=== PATIENT | female | born 1965 | race Caucasian/White ===

== ENCOUNTER 2020-07-01 16:03 | Inpatient (IN) | payer BC ==
--- NOTE | 2020-07-01 17:49 | PDOC.FPRHP ---
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 Her symptoms started on 06/21/20 with malaise and progressed to sore throat on 06/22/20. She was seen by PCP who prescribed cough medicine for sore throat on 06/26/20. Her symptoms improved the next day but ultimately on 06/29/20 she felt fatigued, short of breath with exertion. Endorsed decreased PO intake. She was administered azithromycin, rocephin at the outside facility. She was not administered dexamethasone. She was transferred requiring 1 L NC oxygen. She took ibuprofen at home for fever. ED Course: Pt was transferred from [facility]. Administered rocephin, azithyromycin. - Allergies/Adverse Reactions Allergies Allergy/AdvReac Type Severity Reaction Status Date / Time No Known Drug Allergies Allergy Verified 06/30/20 23:11 - Home Medications Medication Instructions Recorded Confirmed Type No Known 07/01/20 07/01/20 History - History PMHx: hx of pituitary tumor s/p partial resection, hx of [place] disease, hx of DI, hx of osteomyelitis s/p surgical debridement PSHx: facial osteomyelitis debridement FHx: Mother - diabetes; Father Alzheimer's, from COVID 04/29/20 Social: endorsed 1-2 drinks per day w/ last drink 1.5 weeks ago, denies tobacco use, denies drug use; cares for mother - hospice - Review of Systems General: reports: fever/chills, weight/appetite/sleep changes, fatigue Eyes: denies: eye pain, vision changes ENT: denies: nasal congestion, rhinorrhea Respiratory: reports: cough, congestion, shortness of breath Cardiovascular: denies: chest pain, palpitation, edema Gastrointestinal: reports: diarrhea, abdominal pain. denies: nausea, vomiting, constipation Genitourinary: denies: dysuria, polyuria Skin: denies: rashes, lesions Musculoskeletal: denies: pain, tenderness, stiffness, swelling, arthritis/arthralgias Neurological: reports: weakness. denies: numbness Psychological: denies: anxiety, depression - Vital signs BP: 125/67 HR: 90 RR: 22 Tmax: 99 Pox: 100% on 1L Wt: 74 kg - Physical Exam Constitutional: NAD, awake, alert and oriented HEENT: PERRLA, EOMI Neck: FROM, trachea midline, no JVD Heart: RRR, normal S1/S2, no murmurs/rubs/gallops, pulses present, no edema Lungs: CTAB, no respiratory distress, good air movement, no rales/rhonchi, no wheezing Abdomen: soft, non-tender, bowel sounds present Musculoskeletal: normal tone, ROM grossly normal Neurological: no focal deficit, normal sensation Skin: no rash/lesions, good turgor Heme/Lymphatic: no purpura, no petechia Psychiatric: normal mood and affect, good judgment and insight FMR H&P: Results - Radiology Interpretation Chest x-ray Status: image reviewed by me, report reviewed by me Additional comment: An AP portable film at 1530 is compared with a 02/08/07 study. There is a definite patchy infiltrate in the left lower lobe. In addition, there is probably a patchy infiltrate beginning in the right mid lung zone and possibly a small one in the left upper lobe. An infectious etiology seems probable. COVID should be included in the differential diagnosis. There are no effusions. The heart size is normal and there is no congestive change. FMR H&P: A/P - Plan 54 yo female admitted for acute hypoxic respiratory failure 2/2 COVID pneumonia: # AHRF 2/2 Pneumonia, symptom - start dexamethasone - hold abx until procalcitonin results - Pending COVID labs - continue NC oxygen as needed to maintain > 92%, appears pt previously desat'ed with ambulation to mid 80's - will not initiate remdesivir, conv plasma at this time - prophylactic lovenox # Hypokalemia - monitor with am labs # Hx of Pituitary Tumor s/p partial resection Has not followed with endocrinology in 2 years. Receives yearly MRI's with neurosurgery. Not currently on medications. - pending TSH # Hx of Diabetes Insipidus # Hx of Zbigniew's Disease Fluids: LR 100 mls/hr Diet: Regular VTE: Lovenox Code: Full Dispo: Admit to medical inpatient FMR H&P: Upper Level - Plan Date/Time: 07/01/20 078 I, [], have evaluated this patient and agree with findings/plan as outlined by wildlife biology internship resident. Pertinent changes/additions are listed here. Addendum - Attending - Attending Attestation Date/Time: 07/01/202032 I personally evaluated the patient and discussed the management with Dr. Marie I agree with the History, Examination, Assessment and Plan documented above with any addition or exceptions noted below. 54 yo female transferred from outside facility due to AHRF 2/2 COVID. Still requiring supplemental O2. Symptoms present for over 10 days. Will repeat labs. Start anticoag. Procal negative. Hold antibx. Add steroids, antitussive, and breathing treatments prn. Will give IVFs overnight due to poor PO intake. Monitor. Home when able. Otherwise treat symptoms. Migue
[2020-07-01] MEDS: Dexamethasone 4 MG TAB PO SCH (20:21)
[2020-07-01] MEDS: Lactated Ringer's 1,000 ML IV SCH (20:22)
[2020-07-01] MEDS: Acetaminophen 325 MG TAB PO PRN (20:22)
[2020-07-01 20:24] LABS: PTT 37.4 sec (22.9-36.1); Prothrombin Time 12.9 sec (12.0-14.7)
[2020-07-01 20:25] LABS: D-Dimer Test 1.33 *mcg/mL (0.27-0.43)
[2020-07-01 20:50] LABS: Ferritin 91.89 ng/mL (10-291)
[2020-07-01 21:20] LABS: Thyroid Stimulating Hormone 0.842 uIU/mL (0.35-4.94)
[2020-07-02] MEDS: Lactated Ringer's 1,000 ML IV SCH ×3 (05:53→17:30)
--- NOTE | 2020-07-02 06:15 | PDOC.FM ---
- Subjective Subjective: Febrile overnight, now improved. Frequent coughing. Pleuritic pain. Denies palpitations, pressure-like chest pain, chest wall pain. - Objective Vital Signs & Weight: Vital Signs (12 hours) Temp Pulse Resp BP Pulse Ox 07/02/20 04:00 97.9 F 79 20 111/69 95 07/02/20 00:00 98.5 F 77 20 107/74 97 07/01/20 22:22 99.4 F 07/01/20 20:22 102.7 F H 07/01/20 20:00 100.0 F H 98 20 118/76 98 Weight Weight 74.4 kg Result Diagrams: 07/02/20 06:39 07/02/20 06:39 Phys Exam - Physical Examination Constitutional: NAD (appears uncomfortable with coughing, generally fatigued) HEENT: sclera anicteric Neck: supple decreased breath sounds bilaterally, frequent coughing Cardiovascular: RRR, no significant murmur Gastrointestinal: soft, non-tender Musculoskeletal: no edema, pulses present Neurological: non-focal, moves all 4 limbs Psychiatric: normal affect, A&O x 3 Skin: normal turgor, cap refill <2 seconds Dx/Plan - Plan Plan: 54 yo female admitted for acute hypoxic respiratory failure 2/2 COVID pneumonia: # AHRF 2/2 Pneumonia, symptom - start dexamethasone - procal neg, DC abs - continue NC oxygen as needed to maintain > 92%, appears pt previously desat'ed with ambulation to mid 80's - will not initiate remdesivir, conv plasma at this time - prophylactic lovenox # Elevated D-dimer Pleuritic pain. Saturating well on 1L NC and no tachycardia. Likely 2/2 COVID, lower suspicion for PE. - continue ppx lovenox - consider CTA if worsening pain, respiratory status, or develops tachycardia # Hypokalemia, mild, resolved - monitor electrolytes # Hx of Pituitary Tumor s/p partial resection Has not followed with endocrinology in 2 years. Receives yearly MRI's with neurosurgery. Not currently on medications. - TSH wnl # Hx of Diabetes Insipidus # Hx of [place]'s Disease Fluids: LR 100 mls/hr Diet: Regular VTE: Lovenox Code: Full Dispo: Admit to medical inpatient Addendum - Attending - Attending Attestation Date/Time: 07/02/20 6008 I personally evaluated the patient and discussed the management with Dr. Bean. I agree with the History, Examination, Assessment and Plan documented above with any addition or exceptions noted below. Pulm consulted per patient's daughter request. She becomes tachypnic with minimal exertion but otherwise looks well. awaiting recommendations from pulm.
[2020-07-02] MEDS: guaiFENesin ER 600 MG TAB PO PRN ×2 (06:29→18:31)
[2020-07-02 06:48] LABS: #Lymphocytes 0.5 thou/uL (1.20-3.40); #Monocytes 0.1 thou/uL (0.11-0.59); #Neutrophils 1.6 thou/uL (1.40-6.50); %Basophils 0.6 % (0.0-1.0); %Eosinophils 0.4 % (0.0-10.0); %Monocytes 3.9 % (0.0-10.0); %Neutrophils 73.1 % (42.0-75.0); Hemoglobin 12.9 g/dL (12.0-16.0); Mean Corpuscular HGB CONC 34.5 g/dL (32.0-36.0); Mean Corpuscular Hemoglobin 32.3 pg (27.0-31.0); Mean Corpuscular Volume 93.8 fL (78.0-98.0); Mean Platelet Volume 7.8 fL (7.4-10.4); Platelet Count 186 thou/uL (130-400); RBC Distribution Width 11.5 % (11.5-14.5); Red Blood Cell (RBC) Count 3.99 mill/uL (4.20-5.40); White Blood Cell (WBC) Count 2.2 thou/uL (4.8-10.8)
[2020-07-02 07:00] LABS: Anion Gap 14 mmol/L (10-20); BUN (Urea Nitrogen) 8 mg/dL (9.8-20.1); Calc. Creatinine Clearance 131 mL/min (70-130); Calcium 8.7 mg/dL (7.8-10.44); Carbon Dioxide 24 mmol/L (22-29); Chloride 106 mmol/L (98-107); Glucose 123 mg/dL (70-105); Potassium 3.9 mmol/L (3.5-5.1); Sodium 140 mmol/L (136-145)
[2020-07-02] MEDS ORDERED: Enoxaparin Sodium 40 MG/0.4 ML SYRINGE SC SCH (09:00)
[2020-07-02] MEDS ORDERED: Colchicine 0.6 MG TAB PO SCH (11:00)
--- NOTE | 2020-07-02 15:36 | CON ---
DATE OF CONSULTATION: 07/02/2020 HISTORY OF PRESENT ILLNESS: Ms. 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 She presented with COVID pneumonia. I was asked to see her by staff and the daughter. Her main complaint is a dry cough and shortness of breath if she talks a lot. PAST MEDICAL HISTORY: Remarkable for: 1. Pituitary tumor that was resected by Dr. Ceballos, apparently only in the past. 2. History of diabetes insipidus reportedly. 3. History of [place] disease reportedly. 4. History of osteomyelitis. 5. History of cholecystectomy. SOCIAL HISTORY: She is a nonsmoker. Drinks occasionally. REVIEW OF SYSTEMS: Otherwise, negative. PHYSICAL EXAMINATION: GENERAL: She is in no distress when I evaluated her. She is on 1 L of oxygen. Oximetry is in the high 90s. She is afebrile. Heart rate is in the 70s, respiratory rate is 20. HEAD AND NECK: Unremarkable. LUNGS: Distant, clear. HEART: Regular rhythm. ABDOMEN: Soft. EXTREMITIES: Without clubbing, cyanosis, or edema. DIAGNOSTIC STUDIES: Chest radiograph, she has very mild patchy infiltrates. IMPRESSION: COVID pneumonia, at least at this time is mild. PLAN: Continue supportive care. We will follow along with the other physicians caring for her. TIME SPENT: 70-minute consult,greater than 50% of the time was spent on the unit coordinating care. Job ID: [id number] MTDD
[2020-07-02] MEDS: Acetaminophen 325 MG TAB PO PRN (16:18)
--- NOTE | 2020-07-02 17:09 | PQF ---
Q56 2019 [facility] Updated: CLINICAL DOCUMENTATION CLARIFICATION FORM: Please check appropriate box(es): [ ] Sepsis due to: [ x ] Viral Sepsis [ ] Severe sepsis with associated acute organ dysfunction: [ ] Acute Respiratory Failure [ ] Additional/Other: please specify: [ ] Localized infection without sepsis [ ] Other diagnosis [ ] Unable to determine In addition, please specify: Present on Admission (POA): [ x] Yes [ ] No [ ] Unable to determine To be completed by CDI/Coding staff for physician review: Present Clinical Indicators - Signs / Symptoms / Labs Results and Location in Medical Record [x ] Fever or hypothermia (<96.8 F/36 C or > 100.4 F/38C) Temp 102.7 per 07/01 VS [x ] Respiratory rate >20/min, hypoxemia, and or hypercapnia Resp 22 per 07/01 VS [ x ] Heart Rate/Tachycardia (>90 bpm), SBP<100mmHg HR 98 per 07/01 VS [ x ] Acute organ dysfunction/failure acute hypoxic respiratory failure per 07/01 H&P(Marie) [x ] WBC count (>12,000/mm^4 or <4000/mm^3 or 70% neuts, 10% bands) Wbc 2.2 per 07/01 labs Present Risk Factors Results and Location in Medical Record [x ] Infection/Bacteremia COVID pneumonia per 07/01 H&P(Marie) Present Treatments Results and Location in Medical Record [x ] Daily CBC 07/01 per orders [ x ] Steroids/Anti- inflammatory meds 07/01 Decadron 6 mg po; colchicine 0.6 mg po BID 07/02 per orders [x ] IV ?uids LR at 100 per 07/01-07/02 orders [ x ] Oxygen 1 L NC per 07/01 VS [ x ] Pulmonary consult 07/01 orders CDS/Ward Secretary Signature: Kacy Pablo RN, CCDS Phone #: [phone] Date/Time: 07/02/2020 5:03 PM This is a permanent part of the Medical Record WILL
[2020-07-02] MEDS: Mometasone 200 MCG/Formoterol 5 MCG 120 PUFF INHALER INH SCH (18:31)
[2020-07-02] MEDS: Enoxaparin Sodium 60 MG/0.6 ML SYRINGE SC SCH (20:09)
[2020-07-02] MEDS: Colchicine 0.6 MG TAB PO SCH (20:10)
[2020-07-02] MEDS: Dexamethasone 4 MG TAB PO SCH (20:10)
[2020-07-03] MEDS: Lactated Ringer's 1,000 ML IV SCH ×3 (02:58→21:05)
[2020-07-03] MEDS: Acetaminophen 325 MG TAB PO PRN ×4 (05:37→21:04)
[2020-07-03 06:38] LABS: #Lymphocytes 0.4 thou/uL (1.20-3.40); #Monocytes 0.2 thou/uL (0.11-0.59); #Neutrophils 3.5 thou/uL (1.40-6.50); %Basophils 0.3 % (0.0-1.0); %Eosinophils 0.2 % (0.0-10.0); %Lymphocytes 9.6 % (21.0-51.0); %Monocytes 4.5 % (0.0-10.0); %Neutrophils 85.4 % (42.0-75.0); Hemoglobin 10.9 g/dL (12.0-16.0); Mean Corpuscular HGB CONC 34.9 g/dL (32.0-36.0); Mean Corpuscular Hemoglobin 32.5 pg (27.0-31.0); Mean Corpuscular Volume 93.2 fL (78.0-98.0); Platelet Count 210 thou/uL (130-400); RBC Distribution Width 11.5 % (11.5-14.5); Red Blood Cell (RBC) Count 3.37 mill/uL (4.20-5.40); White Blood Cell (WBC) Count 4.2 thou/uL (4.8-10.8)
[2020-07-03 07:03] LABS: Anion Gap 12 mmol/L (10-20); BUN (Urea Nitrogen) 6 mg/dL (9.8-20.1); Calc. Creatinine Clearance 138 mL/min (70-130); Calcium 8.3 mg/dL (7.8-10.44); Carbon Dioxide 26 mmol/L (22-29); Chloride 106 mmol/L (98-107); Glucose 121 mg/dL (70-105); Potassium 3.7 mmol/L (3.5-5.1); Sodium 140 mmol/L (136-145)
--- NOTE | 2020-07-03 07:03 | PDOC.FM ---
- Subjective Subjective: No acute events overnight. Didn't rest well, feeling feverish kept her awake. Continues to have bothersome cough and becoming quite SOB with moving or conversation despite normal O2 saturation. - Objective Vital Signs & Weight: Vital Signs (12 hours) Temp Pulse Resp BP Pulse Ox 07/03/20 04:00 99.2 F 86 20 132/84 95 07/03/20 00:00 98.9 F 87 121/67 99 07/02/20 20:49 99.2 F 87 20 124/84 97 07/02/20 20:00 97 Weight Weight 74.4 kg I&O: 07/02/20 07/03/20 07/04/20 06:59 06:59 06:59 Intake Total 1464 1840 Balance 1464 1840 Result Diagrams: 07/03/20 06:23 07/03/20 06:23 Phys Exam - Physical Examination mild dyspnea with conversation, NAD at rest HEENT: moist MMs Neck: supple coarse breath sounds bilaterally lower half Cardiovascular: RRR, no significant murmur Gastrointestinal: soft, non-tender, no distention Musculoskeletal: no edema, pulses present Neurological: moves all 4 limbs Psychiatric: normal affect, A&O x 3 Skin: normal turgor, cap refill <2 seconds Dx/Plan - Plan Plan: 54 yo female admitted for acute hypoxic respiratory failure 2/2 COVID pneumonia: AHRF 2/2 COVID Symptoms began 06/21, dx on 06/30. Negative procal, DC'd abx. Saturating well on 1LNC although very dysnpeic with conversation. - dexamethasone - pulm consulted per pt request: -colchicine -vit C -convalescent plasma -lovenox 60 BID - outside window for remdesivir - titrate O2 to meet needs Elevated D-dimer Pleuritic pain. Saturating well on 1L NC and no tachycardia. Likely 2/2 COVID, lower suspicion for PE. - on lovenox, will defer CTA Hypokalemia, mild, resolved - monitor electrolytes Hx of Pituitary Tumor s/p partial resection Has not followed with endocrinology in 2 years. Receives yearly MRI's with neurosurgery. Not currently on medications. - TSH wnl Hx of Diabetes Insipidus - aware Hx of Jose's Disease -aware Fluids: LR 100 mls/hr Diet: Regular VTE: Lovenox Code: Full Dispo: Admit to medical inpatient Addendum - Attending - Attending Attestation Date/Time: 07/03/20 2130 I personally evaluated the patient and discussed the management with Dr. Bean. I agree with the History, Examination, Assessment and Plan documented above with any addition or exceptions noted below. stable from yesterday. continue supportive care. Daughter updated.
[2020-07-03] MEDS: Ascorbic Acid 500 mg Chewable Tablet PO SCH (08:14)
[2020-07-03] MEDS: Colchicine 0.6 MG TAB PO SCH ×2 (08:14→21:03)
[2020-07-03] MEDS: Mometasone 200 MCG/Formoterol 5 MCG 120 PUFF INHALER INH SCH ×2 (08:14→17:26)
[2020-07-03] MEDS: Enoxaparin Sodium 60 MG/0.6 ML SYRINGE SC SCH ×2 (08:14→21:05)
[2020-07-03] MEDS: guaiFENesin/Codeine 200 mg/20 mg 10 ml Cup PO PRN ×3 (10:49→23:55)
[2020-07-03] MEDS ORDERED: Albuterol Sulfate 2.5 mg/3 ml Neb NEB PRN (11:07)
[2020-07-03] MEDS ORDERED: Albuterol 200 PUFF (6.7GM INHALER) INH PRN (11:17)
--- NOTE | 2020-07-03 11:58 | RAD ---
EXAM: CHEST ONE VIEW HISTORY: Worsening dyspnea COMPARISON: 06/30/2020 FINDINGS: Cardiac silhouette is magnified by projection. Pulmonary vasculature is within normal limits. Mild li near patchy densities are seen in the right midlung zone and in the lingula and at the left lung base. Findings could be related to atelectasis, but pneumonitis is a possibility and continued follow -up to resolution is recommended. No other interval change. IMPRESSION: Predominantly linear but mild patchy densities within the right midlung zone and at the left lung bas e which could be related to atelectasis, but pneumonitis is a possibility. Follow-up to resolution is recommended.
[2020-07-03] MEDS: Benzonatate 100 MG CAP PO SCH ×2 (14:31→21:03)
--- NOTE | 2020-07-03 15:03 | PRG ---
DATE OF SERVICE: 07/03/2020 SUBJECTIVE: Pedro Lemos says she feels about the same. Her main complaint is a persistent dry cough. She is not hypoxemic. OBJECTIVE: VITAL SIGNS: She is afebrile, heart rate is 74, respiratory rate is 18, oximetry is 98, and blood pressure 129/76. GENERAL: She is in no distress. Her exam is otherwise unchanged. LABORATORY DATA: Chest radiographs essentially unchanged. IMPRESSION: COVID pneumonia, mild symptoms of mild hypoxemia. PLAN: Increase her cough suppression. Continue to support. Job ID: [id number]
[2020-07-03] MEDS: Dexamethasone 4 MG TAB PO SCH (21:04)
[2020-07-04] MEDS: Mometasone 200 MCG/Formoterol 5 MCG 120 PUFF INHALER INH SCH ×2 (05:43→17:44)
--- NOTE | 2020-07-04 06:28 | PDOC.FM ---
- Subjective Subjective: Increased to 2L NC overnight. Becomes dyspneic with movement, worsened by coughing and fever. Unable to tolerate much PO intake due to coughing, dyspnea. Subjectively reports usual urine output. - Objective Vital Signs & Weight: Vital Signs (12 hours) Temp Pulse Resp BP Pulse Ox 07/04/20 05:43 80 19 07/04/20 00:00 98.8 F 78 16 121/81 94 L 07/03/20 22:00 99.8 F H 86 07/03/20 21:04 101.2 F H 07/03/20 20:00 101.2 F H 100 20 123/65 93 L Weight Weight 87.2 kg I&O: 07/02/20 07/03/20 07/04/20 06:59 06:59 06:59 Intake Total 1464 1840 2400 Balance 1464 1840 2400 Result Diagrams: 07/03/20 06:23 07/03/20 06:23 Phys Exam - Physical Examination appears mildly dyspneic with conversation HEENT: moist MMs Neck: supple Respiratory: no wheezing, no rales decreased breath sounds bilaterally, worse on L Cardiovascular: RRR, no significant murmur Gastrointestinal: soft, non-tender, no distention Musculoskeletal: no edema, pulses present Neurological: non-focal, moves all 4 limbs Psychiatric: normal affect, A&O x 3 Skin: normal turgor, cap refill <2 seconds Dx/Plan - Plan Plan: AHRF 2/2 COVID Symptoms began 06/21, dx on 06/30. Negative procal, DC'd abx. Increased to 2LNC overnight. - dexamethasone - pulm consulted per pt request: -colchicine -vit C -convalescent plasma -lovenox 60 BID - outside window for remdesivir - titrate O2 to meet needs - will add strict I/O to ensure increasing O2 requirement not related to excess IV fluids Elevated D-dimer Pleuritic pain. Saturating well on 2L NC and no tachycardia. Likely 2/2 COVID, lower suspicion for PE. - on lovenox, will defer CTA Hypokalemia, mild, resolved - monitor electrolytes Hx of Pituitary Tumor s/p partial resection Has not followed with endocrinology in 2 years. Receives yearly MRI's with neurosurgery. Not currently on medications. - TSH wnl Hx of Diabetes Insipidus - aware Hx of [place]'s Disease -aware Fluids: LR 100 mls/hr Diet: Regular VTE: Lovenox Code: Full Dispo: Admit to medical inpatient Addendum - Attending - Attending Attestation Date/Time: 07/04/20 1034 I personally evaluated the patient and discussed the management with Dr. Bean. I agree with the History, Examination, Assessment and Plan documented above with any addition or exceptions noted below. Stable. continue supportive care. Updated daughter.
[2020-07-04] MEDS: Lactated Ringer's 1,000 ML IV SCH ×2 (07:13→16:45)
[2020-07-04] MEDS: Colchicine 0.6 MG TAB PO SCH ×2 (08:02→21:46)
[2020-07-04] MEDS: Ascorbic Acid 500 mg Chewable Tablet PO SCH (08:03)
[2020-07-04] MEDS: Benzonatate 100 MG CAP PO SCH ×3 (08:03→21:45)
[2020-07-04] MEDS: Enoxaparin Sodium 60 MG/0.6 ML SYRINGE SC SCH ×2 (08:03→21:45)
[2020-07-04] MEDS: Acetaminophen 325 MG TAB PO PRN (08:03)
[2020-07-04] MEDS: guaiFENesin/Codeine 200 mg/20 mg 10 ml Cup PO PRN (08:04)
[2020-07-04] MEDS: Acetaminophen 500 MG TAB PO PRN ×2 (10:23→19:31)
[2020-07-04] MEDS: Dexamethasone 4 MG TAB PO SCH (21:45)
[2020-07-04] MEDS: guaiFENesin ER 600 MG TAB PO PRN (21:58)
[2020-07-05] MEDS: Lactated Ringer's 1,000 ML IV SCH (04:04)
[2020-07-05] MEDS: guaiFENesin/Codeine 200 mg/20 mg 10 ml Cup PO PRN ×2 (04:05→18:27)
[2020-07-05 04:15] VITALS: BMI 33.7
[2020-07-05] MEDS: Mometasone 200 MCG/Formoterol 5 MCG 120 PUFF INHALER INH SCH ×2 (05:40→17:23)
--- NOTE | 2020-07-05 08:19 | RAD ---
Portable frontal chest radiograph: 07/05/2020 COMPARISON: 07/03/2020 HISTORY: Follow-up pneumonia, Covid 19 FINDINGS: There is no pneumothorax or large volume pleural effusion. There is prominent perihilar and bibasilar interstitial and alveolar opacity, left greater than right, worsened bilaterally, particularly in the right upper lobe and the left base and mid left lung zone. IMPRESSION: Worsening interstitial and alveolar opacity suggesting worsening bilateral Covid pneumoni a.
--- NOTE | 2020-07-05 08:55 | PDOC.FM ---
- Subjective Subjective: No acute overnight events. Feeling about the same as yesterday, continues with persistent cough, now productive. Reports she had a desaturation to 87% when she ambulated to the bathroom without O2. Continues to have dyspnea with conversation. - Objective Vital Signs & Weight: Vital Signs (12 hours) Temp Pulse Resp BP Pulse Ox 07/05/20 08:00 99.0 F 76 22 H 133/84 95 07/05/20 05:40 89 19 95 07/05/20 05:20 98.6 F 71 20 132/84 94 L 07/05/20 00:00 99.2 F 89 22 H 132/81 94 L Weight Weight 86.273 kg I&O: 07/04/20 07/05/20 07/06/20 06:59 06:59 06:59 Intake Total 1700 2880 Output Total 1000 Balance 1700 1880 Result Diagrams: 07/03/20 06:23 07/03/20 06:23 Phys Exam - Physical Examination Constitutional: NAD HEENT: moist MMs, sclera anicteric Neck: supple decreased breath sounds bilaterally, dyspneic with conversation no increased WOB at rest Cardiovascular: RRR, no significant murmur Gastrointestinal: soft, non-tender, no distention, positive bowel sounds Musculoskeletal: no edema, pulses present Neurological: non-focal, moves all 4 limbs Psychiatric: normal affect, A&O x 3 Skin: normal turgor, cap refill <2 seconds Dx/Plan - Plan Plan: AHRF 2/2 COVID Symptoms began 06/21, dx on 06/30. s/p abx in ED, discontinued d/t covid w/neg procal. Placed on supplemental O2 on admission. Saturating well on NC but with reported desaturations to mid-80s when ambulating on RA. CXR this AM appears to have worsening infiltrates, consider worsening COVID vs volume overload 2/2 mIVF. - dexamethasone - pulm consulted per pt request: -colchicine -vit C -convalescent plasma, completed -lovenox 60 BID - outside window for remdesivir - wean O2 as tolerated - appears hydrated on exam today, will hold IVF and monitor respiratory and volume status - continue strict I/O Elevated D-dimer Pleuritic pain. Saturating well on 2L NC and no tachycardia. Likely 2/2 COVID, lower suspicion for PE. - on lovenox, will defer CTA Hypokalemia, mild, resolved - monitor electrolytes Hx of Pituitary Tumor s/p partial resection Has not followed with endocrinology in 2 years. Receives yearly MRI's with neurosurgery. Not currently on medications. - TSH wnl Hx of Diabetes Insipidus - aware Hx of Jose's Disease -aware Fluids: SL Diet: Regular VTE: Lovenox Code: Full Dispo: Admit to medical inpatient Addendum - Attending - Attending Attestation Date/Time: 07/05/20 6716 I personally evaluated the patient and discussed the management with Dr. Bean. I agree with the History, Examination, Assessment and Plan documented above with any addition or exceptions noted below. clinically improving. CXR appears worse but may be delayed changes. Will continue to adjust supplemental oxygen. If she can decreased back to 1 L and appears stable, possible d/c tomorrow but more likely will be here through the weekend.
[2020-07-05] MEDS: Benzonatate 100 MG CAP PO SCH ×3 (09:09→20:54)
[2020-07-05] MEDS: Ascorbic Acid 500 mg Chewable Tablet PO SCH (09:09)
[2020-07-05] MEDS: Colchicine 0.6 MG TAB PO SCH ×2 (09:10→20:54)
[2020-07-05] MEDS: Enoxaparin Sodium 60 MG/0.6 ML SYRINGE SC SCH ×2 (09:10→20:54)
[2020-07-05] MEDS: Dexamethasone 4 MG TAB PO SCH (20:53)
[2020-07-06] MEDS: Mometasone 200 MCG/Formoterol 5 MCG 120 PUFF INHALER INH SCH ×2 (05:39→18:44)
--- NOTE | 2020-07-06 07:25 | PDOC.FM ---
- Subjective Subjective: No acute overnight events. Continuing to wean down O2. Reports coughing/breathing is somewhat improved but has been unable to tolerate PO intake due to nausea. Denies vomiting. Mild epigastric pain. No constipation. Stools loser than usual, has not had much solid intake in past several days. No black or bloody stools, mostly yellow-alanna stools. - Objective Vital Signs & Weight: Vital Signs (12 hours) Temp Pulse Resp BP Pulse Ox 07/06/20 04:00 98.0 F 18 145/93 H 96 07/06/20 00:00 97.9 F 75 20 123/78 07/05/20 20:00 94 L 07/05/20 19:45 99.0 F 78 20 136/85 94 L Weight Weight 76.022 kg I&O: 07/05/20 07/06/20 07/07/20 06:59 06:59 06:59 Intake Total 2880 440 Output Total 1000 850 Balance 1880 -410 Result Diagrams: 07/03/20 06:23 07/03/20 06:23 Phys Exam - Physical Examination Constitutional: NAD HEENT: moist MMs, sclera anicteric Neck: supple decreased breath sounds bilaterally in lower lungs Cardiovascular: RRR, no significant murmur Gastrointestinal: soft, no distention, positive bowel sounds mild epigastric tenderness Musculoskeletal: no edema, pulses present Neurological: non-focal, moves all 4 limbs Psychiatric: normal affect, A&O x 3 Skin: normal turgor, cap refill <2 seconds Dx/Plan - Plan Plan: AHRF 2/2 COVID Symptoms began 06/21, dx on 06/30. s/p abx in ED, discontinued d/t covid w/neg procal. Placed on supplemental O2 on admission. Saturating well on NC but with reported desaturations to mid-80s when ambulating on RA. Weaning O2 appropriately, subjectively respiratory symptoms improving. - dexamethasone - pulm consulted per pt request: -colchicine -vit C -convalescent plasma, completed -lovenox 60 BID - outside window for remdesivir - wean O2 as tolerated - continue strict I/O - will add PPI due to nausea in the setting of steroid/lovenox use - prn zofran Elevated D-dimer Pleuritic pain. Saturating well on 2L NC and no tachycardia. Likely 2/2 COVID, lower suspicion for PE. - on lovenox, will defer CTA Hypokalemia, mild, resolved - monitor electrolytes Hx of Pituitary Tumor s/p partial resection Has not followed with endocrinology in 2 years. Receives yearly MRI's with neurosurgery. Not currently on medications. - TSH wnl Hx of Diabetes Insipidus - aware Hx of [place]'s Disease -aware Fluids: SL Diet: Regular VTE: Lovenox Code: Full Dispo: Likely DC to home with home O2 given improvement in respiratory symptoms. Addendum - Attending - Attending Attestation Date/Time: 07/06/20 9733 I personally evaluated the patient and discussed the management with Dr. [] I agree with the History, Examination, Assessment and Plan documented above with any addition or exceptions noted below. arranging home O2 then d/c home if tolerating PO.
[2020-07-06] MEDS: Ascorbic Acid 500 mg Chewable Tablet PO SCH (09:44)
[2020-07-06] MEDS: Benzonatate 100 MG CAP PO SCH ×3 (09:44→20:57)
[2020-07-06] MEDS: Colchicine 0.6 MG TAB PO SCH ×2 (09:44→20:57)
[2020-07-06] MEDS: Enoxaparin Sodium 60 MG/0.6 ML SYRINGE SC SCH ×2 (09:44→20:57)
[2020-07-06] MEDS ORDERED: Ondansetron ODT 4 MG TAB PO PRN (09:59)
[2020-07-06] MEDS: guaiFENesin/Codeine 200 mg/20 mg 10 ml Cup PO PRN ×2 (11:08→16:58)
[2020-07-06] MEDS ORDERED: Ondansetron PF 4 MG/2 ML Vial IVP PRN (17:43)
[2020-07-06] MEDS ORDERED: Ondansetron PF 4 MG/2 ML Vial IVP SCH (18:15)
[2020-07-06] MEDS: Dexamethasone 4 MG TAB PO SCH (20:57)
[2020-07-07] MEDS: Mometasone 200 MCG/Formoterol 5 MCG 120 PUFF INHALER INH SCH (05:45)
--- NOTE | 2020-07-07 06:15 | PDOC.FM ---
- Subjective Subjective: Plan for DC yesterday afternoon held due to nausea not relieved by PRN medications. Continues to have nausea this AM but agrees if she can tolerate PO fluids she will be able to go home. Has not had any vomiting. SOB with exertion, improved with rest, supplemental O2. - Objective Vital Signs & Weight: Vital Signs (12 hours) Temp Pulse Resp BP Pulse Ox 07/07/20 04:00 98.4 F 56 L 20 160/92 H 96 07/07/20 00:00 98.4 F 55 L 18 147/94 H 95 07/06/20 20:00 98.7 F 58 L 18 143/88 H 96 Weight Weight 75.75 kg I&O: 07/05/20 07/06/20 07/07/20 06:59 06:59 06:59 Intake Total 2880 440 Output Total 1000 850 700 Balance 3850 -410 -700 Result Diagrams: 07/03/20 06:23 07/03/20 06:23 Phys Exam - Physical Examination Constitutional: NAD HEENT: moist MMs Neck: supple Respiratory: no wheezing decreased breath sounds bilateral bases easily converses Cardiovascular: RRR, no significant murmur Gastrointestinal: soft, non-tender, no distention, positive bowel sounds Musculoskeletal: no edema, pulses present Neurological: non-focal, moves all 4 limbs Psychiatric: A&O x 3 Deviation from normal: mildly anxious affect Skin: normal turgor, cap refill <2 seconds Dx/Plan - Plan Plan: AHRF 2/2 COVID, improving Symptoms began 06/21, dx on 06/30. s/p abx in ED, discontinued d/t covid w/neg procal. Placed on supplemental O2 on admission. Saturating well on NC but with reported desaturations to mid-80s when ambulating on RA. Weaning O2 appropriately, subjectively respiratory symptoms improving. - dexamethasone - pulm consulted per pt request - outside window for remdesivir - wean O2 as tolerated - continue strict I/O - will add PPI due to nausea in the setting of steroid/lovenox use - prn phenergan, zofran - will DC colchicine this AM due to nausea Elevated D-dimer Pleuritic pain. Saturating well on 2L NC and no tachycardia. Likely 2/2 COVID, lower suspicion for PE. - on lovenox, will defer CTA Hypokalemia, mild, resolved - monitor electrolytes Hx of Pituitary Tumor s/p partial resection Has not followed with endocrinology in 2 years. Receives yearly MRI's with neurosurgery. Not currently on medications. - TSH wnl Hx of Diabetes Insipidus - aware Hx of [place]'s Disease -aware Fluids: SL Diet: Regular VTE: Lovenox Code: Full Dispo: Home O2 arranged, DC held yesterday due to severe nausea. Adjusted medications, will DC home with prn anti-emetics if tolerating PO intake this AM. Addendum - Attending - Attending Attestation Date/Time: 07/07/20 1026 I personally evaluated the patient and discussed the management with Dr. Bean. I agree with the History, Examination, Assessment and Plan documented above with any addition or exceptions noted below. if she can tolerate PO intake, can d/c home. has home o2 already.
[2020-07-07] MEDS: Benzonatate 100 MG CAP PO SCH ×2 (08:09→14:39)
[2020-07-07] MEDS: Enoxaparin Sodium 60 MG/0.6 ML SYRINGE SC SCH (08:09)
[2020-07-07] MEDS: Ascorbic Acid 500 mg Chewable Tablet PO SCH (08:09)
[2020-07-07] MEDS ORDERED: Promethazine 25 MG TAB PO PRN (08:38)
[2020-07-07 08:42] VITALS: TEMP 98.6
[2020-07-07 14:48] VITALS: BP 144/88
--- NOTE | 2020-07-08 01:42 | DIS ---
DATE OF ADMISSION: 07/01/2020 DATE OF DISCHARGE: 07/07/2020 RESIDENT: Chanell Bean DO. ADMITTING ATTENDING: Dr. Lopez. DISCHARGE ATTENDING: Dr. Vu Mijares. CONSULTS: Pulmonology, Dr. Park. PROCEDURES: None. PRIMARY DIAGNOSIS: COVID-19 pneumonia. SECONDARY DIAGNOSES: History of pituitary tumor, status post partial resection; diabetes insipidus; history of [place]'s disease. DISCHARGE MEDICATIONS: 1. Tylenol 1000 mg p.o. q.6 hours p.r.n. 2. Phenergan 25 mg p.o. q.6 hours p.r.n. 3. Protonix 40 mg p.o. daily for 2 weeks only. 4. Albuterol 1 puff q.4 hours p.r.n. 5. Robitussin AC 10 mL p.o. q.6 hours p.r.n. 6. Tessalon 200 mg p.o. t.i.d. p.r.n. DISCONTINUED MEDICATIONS: None. HISTORY OF PRESENT ILLNESS AND HOSPITAL COURSE: Ms. Lemos is a 54-year-old female with a past history significant for [place]'s disease, diabetes insipidus, and pituitary tumor, status post partial resection, who presented with shortness of breath secondary to COVID pneumonia. Her symptoms initially began on June 21 and progressively worsened. She was treated by her PCP in the outpatient setting, who prescribed her cough medicines. She presented to an outside facility on 06/29, where azithromycin and Rocephin were administered. She was not given dexamethasone at that time and she was requiring 1 L nasal cannula oxygen. She was transferred to our facility for admission. These antibiotics were discontinued on admission. Dexamethasone was started and she was continued on nasal cannula titrated to meet her needs. Due to presenting several days into her course, remdesivir and convalescent plasma were initially not started. At patient request, she was seen by Pulmonology who also added colchicine, vitamin C, convalescent plasma to her regimen. She remained on supplemental oxygen, requiring between 1 and 2 L nasal cannula throughout her admission. She was also on IV fluids as she was unable to tolerate p.o. intake due to severe dyspnea with conversation or trying to eat. Several days into her admission, she also developed nausea without vomiting. She was started on PPI. Her colchicine was discontinued and she was given p.r.n. Zofran and Phenergan, which improved her ability to tolerate p.o. fluids. Home oxygen was arranged and she was discharged to home. DISPOSITION: Stable. DISCHARGE INSTRUCTIONS: Location: Home. Diet: Regular diet. Activity: As tolerated. Followup: With her PCP within one week. Her PCP is Dr. Grijalva who is out of town. Job ID: [id number] [id number]
== END 2020-07-07 17:05 | disposition home or self-care (01) | DRG 871 ==
LOC: T4-A 17:10
PROVIDERS: ADMIT Family Medicine; ATTEND Family Medicine
PROC: 8E0ZXY6 Isolation (ICD-10-PCS; 2020-07-01)
PROC: XW13325 Transfusion of Convalescent Plasma (Nonautologous) into Peripheral Vein, Percutaneous Approach, New Technology Group 5 (ICD-10-PCS; principal; 2020-07-02)
DX: A41.89 Other specified sepsis (principal); U07.1 COVID-19; J12.82 Pneumonia due to coronavirus disease 2019; J96.01 Acute respiratory failure with hypoxia; E23.2 Diabetes insipidus; E24.9 Cushing's syndrome, unspecified; E87.6 Hypokalemia; Z98.890 Other specified postprocedural states; Z81.8 Family history of other mental and behavioral disorders; Z83.1 Family history of other infectious and parasitic diseases; Z90.49 Acquired absence of other specified parts of digestive tract
CPT/HCPCS: 36415; 36430; 71045; 80048; 82550; 82728; 83615; 84145; 84443; 85025; 85379; 85610; 85730; 86140; 86850; 86900; 86901; 94664; J1650; J2405; J8540; P9017; Q0162